=== PATIENT | female | born 1930 | race Caucasian/White ===

== ENCOUNTER 2017-07-28 18:33 | Emergency (ER) | payer MEDICARE, BC ==
[~2017-07-28] VITALS: Ht 165.1 cm; Wt 72.6 kg
--- NOTE | 2017-07-28 18:52 | NUR ---
Dr Santo at the bedside for MSE.
[2017-07-28] MEDS ORDERED: AMLO5TAB2 PO (18:55)
[2017-07-28] MEDS ORDERED: ATOR10TA PO (18:55)
[2017-07-28] MEDS ORDERED: CARV3.12 PO (18:55)
[2017-07-28] MEDS ORDERED: PANT40TA4 PO (18:55)
[2017-07-28] MEDS ORDERED: ASPI81TA31 PO (18:55)
[2017-07-28] MEDS ORDERED: LISI2.5T2 PO (18:55)
[2017-07-28] MEDS ORDERED: HYDR50TA3 PO (18:55)
[2017-07-28 19:10] VITALS: BP 157/77
--- NOTE | 2017-07-28 19:11 | NUR ---
Patient discharged to home in stable conditon. Written and verbal after care instructions given. Patient verbalizes understanding of instructions. Pt left Er w/ steady gait accompained by family.
== END 2017-07-28 19:13 | disposition home or self-care (01) ==
LOC: ER 18:34
DX: R20.0 Anesthesia of skin (principal); Z79.82 Long term (current) use of aspirin; Z79.899 Other long term (current) drug therapy
CPT/HCPCS: A4663